=== PATIENT | female | born 1945 | race Caucasian/White ===

== ENCOUNTER 2024-05-16 12:55 | Outpatient (AMB) | payer MEDICARE, SELFPAY ==
[2024-05-16 13:07] VITALS: BP 147/80; PULSE 74; RESP 18; TEMP 36.3; O2SAT 87; BMI 22.1
--- NOTE | 2024-05-16 13:07 | ORTHONT_ITS ---
Vital signs 05/16/24 13:07 Height 1.55 m Height Method Stated Weight 53.127 kg Weight Measurement Method Standing Scale BMI 22.1 BP 147/80 H Blood Pressure Source Automatic Cuff Blood Pressure Location Right Upper Arm Position Sitting Respiration 18 Pulse 74 Pulse Source Monitor Temp 97.4 F Temp Source Temporal Artery Scan Pulse Oximetry (%) 87 L Oxygen Delivery Method Room Air Med/Allergies Allergies & Medications Allergies No Known Allergies Allergy (Verified 05/16/24 13:10) Medication Reconciliation oxycodone-acetaminophen 5 mg-325 mg tablet (Percocet) 1 tab PO Q6H PRN pain #10 tabs 04/29/22 [Rx Confirmed 05/16/24] alendronate 70 mg tablet 70 mg PO QDAY 12/24/22 [History Confirmed 05/16/24] duloxetine 60 mg capsule,delayed release 60 mg PO QDAY 12/24/22 [History Confirmed 05/16/24] furosemide 20 mg tablet 20 mg PO QDAY 12/24/22 [History Confirmed 05/16/24] gabapentin 400 mg capsule 400 mg PO HS 12/24/22 [History Confirmed 05/16/24] omeprazole 20 mg tablet,delayed release 20 mg PO QDAY 12/24/22 [History Confirmed 05/16/24] prednisone 5 mg tablet 5 mg PO UD 12/24/22 [History Confirmed 05/16/24] trazodone 100 mg tablet 100 mg PO HS 12/24/22 [History Confirmed 05/16/24] loperamide 2 mg capsule (Anti-Diarrheal (loperamide)) 2 mg PO Q4H PRN 10/28/23 [History Confirmed 05/16/24] mirabegron 25 mg tablet,extended release 24 hr (Myrbetriq) 25 mg PO QDAY 10/28/23 [History Confirmed 05/16/24] Subjective Visit Visit for: follow up visit Immunization / Flu Flu Vaccine in the Last 12 Months: Yes Flu Vaccine Exclusion Criteria: Already Received History of Present Illness Chief complaint: PRE OP RIGHT TKA Date of injury / onset of symptoms: YEARS Patient is a 79-year-old female who comes in today for right knee pain evaluation. She recently had an MRI scan done by Dr. Lacey, her primary care provider, which indicated that she had bone to bone arthritis of her right knee. Today she comes in for a referral to get further care and see if she is a candidate for surgery. In terms of her right knee, she complains that she has a dull achy pain is constant and is difficult to ambulate and stand for an extended period of time. She has had associated swelling to her right knee. The swelling has been consistent and unresolved since she had a fall about 6 months ago. She has tried Percocet as prescribed by her doctor with partial relief. She has obtained injections in the past but she is due for one after some time is passed. Patient has also had a prior history of low platelets within the 50s. She has also had a left knee replacement surgery about 4 to 5 years ago that is now doing well. Other PMHx includes Varicose Veins, RA and OA. She is not on any immunomodulators for her rheumatoid right now Personal History Occupation: RETIRED Red flag PMH: smoker and cigarettes qd (specify) (10 CIGARETTES A DAY ) Pain Pain level (0-10): 8 Pain duration: CONSTANT Pain location: inside (medial) Pain quality: aching Pain timing: night and increases with activity Associated signs & symptoms: weakness Ambulatory data Ambulatory device: none Treatments Improvement with previous injections: No Improvement with PT: No Improvement with NSAIDS: no Review of Systems Review of Systems: All systems negative unless otherwise noted in HPI. Exam Exam Patient is in no acute distress and is cooperative with the examination today. Breathing is nonlabored. Patient has a normal mood and affect. Bilateral extremities were evaluated and demonstrates sensation intact to light touch. Palpable pedal pulses are present. No significant edema is present. Bilateral hips were examined. The patient has no pain with log roll of the hips. Internal rotation to 30 degrees and external rotation to 30 degrees is painless. Negative FADIR. Left knee was examined today. The left knee is in reasonable alignment. Range of motion from 0-120 degrees. Knee is stable to varus and valgus as well as AP translation with <5mm. Patient has a negative McMurrays. There is no pain with patellofemoral compression and no crepitus noted. The knee is nontender to palpation. The right knee was also examined. The right knee is in valgus alignment. Range of motion from 0-110 degrees. Knee is stable to varus and valgus as well as AP translation with <5mm. Patient has a negative McMurrays. There is no pain with patellofemoral compression and no crepitus noted. The knee is tender to palpation laterally X-rays demonstrate complete obliteration of the lateral medial joint space. There is valgus alignment and osteophytes Assessment and Plan Problem List (1) Rheumatoid arthritis involving right knee: Status: Acute Plan: 78-year-old female with valgus knee arthritis as well as rheumatoid arthritis. She is failed conservative treatment. She has had multiple injections in the past as well as anti-inflammatories. She does have low platelets. Platelet count is currently 47. I discussed with her her smoking risk and she is still smoking 10 cigarettes a day. I discussed with her that she is actually multiple things going against her for surgery. He is still on Percocet, she is still smoking, she had prior vascular surgery, and her platelets are still far from optimized. I thus discussed with her that surgery is extremely high risk and she is at high risk for infection, and wound issues. I would like for her to quit smoking and get better optimize that she is at high risk for complications Advanced Care Planning Discussion Advance care planning discussed with:: patient Office Procedures GNS Level of Care Nursing/Assessment Patient Status: Established Patient Nursing Assessment/Reassesment: Medication Reconciliation, Update PMH in EMR and Vital Signs Coordination of Care: Complex Care and Chronic Disease 1-5, Education Complex Pt/Fam, Consent,records obtained, informed consent, 1 Ins Authorization and Staf f clarify orders Established Patient Charge Established Patient Point Assignment: 105 Established Patient Point Charge: EP Level 3 (80-115) Past Medical History Past Medical History Have you ever been diagnosed with any of the following: Neurological Problems Peripheral Neuropathy: Yes (Severe to bilateral legs) Cardiology Problems Congestive Heart Failure: No Respiratory Problems Chronic Obstructive Pulmonary Disease (COPD): No Smoking: Yes Smoking Cessation Counseling: No Smoking Exposure: Yes Genital/Urinary Problems Renal Disease: No Reproductive Problems Pelvic Inflammatory Disease: No Musculoskeletal Problems Arthritis: Yes Rheumatoid Arthritis: Yes Endocrine Problems Diabetes Mellitus Type 1: No Diabetes Mellitus Type 2: No Other Problems Blood Transfusions: No Anesthesia Reactions: No Surgical History Appendectomy: Yes Bariatric Surgery: Yes Cholecystectomy: Yes Total Knee Replacement: Yes Hysterectomy: Yes (total)
== END 2024-05-16 13:42 | disposition home or self-care (01) ==
LOC: HODSRG 12:55
PROVIDERS: PCP Family Medicine; Referring Provider Family Medicine; Supervising Provider Orthopaedic Surgery Adult Reconstructive Orthopaedic Surgery; Visit Provider Orthopaedic Surgery Adult Reconstructive Orthopaedic Surgery
DX: M06.861 Other specified rheumatoid arthritis, right knee (principal); D69.6 Thrombocytopenia, unspecified; F17.210 Nicotine dependence, cigarettes, uncomplicated
CPT/HCPCS: 99213; G0463

== ENCOUNTER → 2024-06-09 | Outpatient (BNVA) | payer MEDICARE, SELFPAY | END | disposition home or self-care (01) | PROVIDERS: PCP Family Medicine; Referring Provider Family Medicine; Visit Provider Urology | DX: G89.4 Chronic pain syndrome (principal); Z87.440 Personal history of urinary (tract) infections; R31.29 Other microscopic hematuria; M06.9 Rheumatoid arthritis, unspecified; F17.210 Nicotine dependence, cigarettes, uncomplicated | CPT/HCPCS: 81003; 99212; G0463 ==

== ENCOUNTER → 2024-07-17 | Outpatient (CLI) | payer MEDICARE, SELFPAY ==
--- NOTE | 2024-07-17 | XR_ITS ---
Examination: Bilateral hands, 6 views. Technique: AP, Oblique, Lateral each hand total 6 views Date and time of exam: July 17, 2024 1238 hours INDICATIONS: Bilateral hand and wrist pain months FINDINGS: Severe osteopenia Bilateral erosive changes distal radius distal ulna Differential narrowing metacarpophalangeal joints No fracture involving either hand Cystic change in the right navicular IMPRESSION: Bilateral erosive changes consistent with rheumatoid arthritis
--- NOTE | 2024-07-17 | XR_ITS ---
Examination: Lumbar spine 3 views Technique one AP lateral coned lateral lower lumbar spine 3 views Exam date and time: July 17, 2024 1250 hours INDICATIONS: Back pain months, history rheumatoid arthritis findings: Severe osteopenia Severe lumbar levoscoliosis 40 degrees No acute thoracic fracture Grade 2 spondylolisthesis L5 on S1 with advanced degenerative disc disease at this level IMPRESSION: Severe osteopenia Severe lumbar levoscoliosis Grade 2 spondylolisthesis L5 on S1 Advanced degenerative disc disease L5-S1
--- NOTE | 2024-07-17 | XR_ITS ---
Examination: Bilateral wrists 6 views TECHNIQUE: AP oblique lateral each wrist total 6 views Exam date and time: July 17, 2024 12:45 PM INDICATIONS: Wrist pain months FINDINGS: Severe osteopenia Chronic erosive changes distal radius distal ulna, more severe right wrist No fracture or dislocation involving either wrist No opaque foreign bodies IMPRESSION: Rheumatoid arthritis findings as above
== END | disposition home or self-care (01) ==
PROVIDERS: PCP Family Medicine; Referring Provider Nurse Practitioner Family; Visit Provider Nurse Practitioner Family
DX: M85.842 Other specified disorders of bone density and structure, left hand (principal); M85.841 Other specified disorders of bone density and structure, right hand; M06.832 Other specified rheumatoid arthritis, left wrist; M06.831 Other specified rheumatoid arthritis, right wrist; M85.88 Other specified disorders of bone density and structure, other site; M41.86 Other forms of scoliosis, lumbar region; M43.17 Spondylolisthesis, lumbosacral region; M51.379 Other intervertebral disc degeneration, lumbosacral region without mention of lumbar back pain or lower extremity pain
CPT/HCPCS: 72100; 73110; 73130

== ENCOUNTER → 2024-12-20 | Outpatient (CLI) | payer MEDICARE, SELFPAY ==
--- NOTE | 2024-12-20 10:53 | XR_ITS ---
Examination: PA chest single view TECHNIQUE: Upright PA chest single view Date and time: December 20, 2024 1110 hours Comparison December 30, 2010 INDICATIONS: Smoking history 61 years. FINDINGS: Mild prominence left ventricle Severe thoracic dextroscoliosis Prominent osteopenia No pneumonia or pulmonary edema IMPRESSION: No pneumonia or pulmonary edema
== END | disposition home or self-care (01) ==
LOC: CDIM 10:45
PROVIDERS: PCP Family Medicine; Referring Provider Family Medicine; Visit Provider Family Medicine
DX: F17.200 Nicotine dependence, unspecified, uncomplicated (principal)
CPT/HCPCS: 71045

== ENCOUNTER → 2025-01-29 | Outpatient (BNVA) | payer MEDICARE, SELFPAY | END | disposition home or self-care (01) | PROVIDERS: PCP Family Medicine; Referring Provider Family Medicine; Visit Provider Urology | DX: G89.4 Chronic pain syndrome (principal); R10.2 Pelvic and perineal pain; N39.41 Urge incontinence; M06.9 Rheumatoid arthritis, unspecified; Z87.891 Personal history of nicotine dependence | CPT/HCPCS: 81003; 99212; G0463 ==